=== PATIENT | female | born 2000 ===

== ENCOUNTER 2023-06-20 07:15 | Day surgery (SDC) | payer OTHER | END 2023-06-20 15:45 | disposition home or self-care (01) | LOC: CIR.AMB 07:15 | PROVIDERS: ATTEND Obstetrics & Gynecology | DX: N93.8 Other specified abnormal uterine and vaginal bleeding (principal); N72 Inflammatory disease of cervix uteri; Z20.822 Contact with and (suspected) exposure to COVID-19 ==